=== PATIENT | female | born 2000 | race Two or more races ===

== ENCOUNTER 2022-04-15 17:41 | Emergency (ER) | payer SELFPAY ==
[2022-04-15 18:09] LABS: Urine Blood Trace-lysed (Negative); Urine Glucose Negative (Negative); Urine Protein Negative (Negative); Urine Specific Gravity 1.025 (1.005-1.030); Urine pH 5.5 (5.0-7.0)
[2022-04-15] MEDS ORDERED: KETOROLAC 30 MG/ML INJ ONE (18:43)
[2022-04-15] MEDS ORDERED: NA CHLORIDE 0.9% 1,000 ML ONE (18:43)
[2022-04-15 18:52] LABS: Urine Bacteria <20 /HPF (<20); Urine Mucus Slight /HPF (None Seen); Urine RBC <5 /HPF (None Seen)
[2022-04-15 19:08] LABS: Barbiturates NEGATIVE (NEGATIVE); Benzodiazepines NEGATIVE (NEGATIVE); Cocaine NEGATIVE (NEGATIVE); METHAMPHETAM NEGATIVE (NEGATIVE); Methadone NEGATIVE (NEGATIVE); Opiates NEGATIVE (NEGATIVE); Phencyclidine NEGATIVE (NEGATIVE); THC Cannibis NEGATIVE (NEGATIVE)
[2022-04-15 20:16] LABS: Absolute Lymphocytes (CBC) 2.3 K/uL (0.7-4.9); Hematocrit 39.1 % (36.0-45.0); Lymphocytes % 21.5 % (15.3-44.8); MCV 87.9 fL (80-100); RBC Red Blood Cell Count 4.45 M/uL (3.86-4.86)
[2022-04-15 20:21] LABS: Urine Specific Gravity/Preg 1.025 (1.005-1.030)
[2022-04-15 20:31] LABS: Albumin 3.6 g/dL (3.4-5.0); Bilirubin Total 0.4 mg/dL (0.2-1.0); Potassium 3.9 mmol/L (3.5-5.1)
--- NOTE | 2022-04-15 20:59 | RAD REPORT ---
EXAM DESCRIPTION: CT - Head Brain Wo Cont - 04/15/2022 8:51 pm CLINICAL HISTORY: headache COMPARISON: No comparisons TECHNIQUE: All CT scans are performed using dose optimization technique as appropriate and may inclu de automated exposure control or mA/KV adjustment according to patient size. FINDINGS: No intracranial hemorrhage, hydrocephalus or extra-axial fluid collection.No areas of brai n edema or evidence of midline shift. The paranasal sinuses and mastoids are clear. The calvarium is intact. IMPRESSION: No acute intracranial abnormality.
--- NOTE | 2022-04-15 21:01 | RAD REPORT ---
EXAM DESCRIPTION: CTAbdomen Pelvis W Contrast - 04/15/2022 8:51 pm CLINICAL HISTORY: lower abdomen pain COMPARISON: Head Brain Wo Cont dated 04/15/2022 TECHNIQUE: CT of the abdomen and pelvis was performed. All CT scans are performed using dose optimization technique as appropriate and may include automated exposure control or mA/KV adjustment according to patient size. FINDINGS: Lower chest: No acute abnormality. Liver: No acute abnormality or suspicious lesions. Biliary: No biliary ductal dilatation. Stomach: No significant focal abnormality. Duodenum: No significant focal abnormality. Pancreas: No significant abnormality. Spleen: No significant abnormality. Adrenal: No suspicious lesions. Kidney/ureter: No hydronephrosis. No renal calculi. Retroperitoneum: No retroperitoneal adenopathy. Vascular: No aneurysm. Bowel: No significant focal abnormality. No evidence appendicitis. Peritoneum: Trace pelvic free fluid. Bladder: Grossly unremarkable. Reproductive: 2 adjacent right adnexal cysts are noted. Bones: No acute fracture. Other: n/a IMPRESSION: No acute intra-abdominal or pelvic finding. Right adnexal lesions which are presumably p hysiologic in a patient of this age group. No evidence of appendicitis.
[2022-04-15] MEDS ORDERED: METOPROLOL TARTRATE 5 MG/5 ML INJ IV ONE (21:41)
--- NOTE | 2022-04-15 22:33 | EDPHYS ---
Physician Documentation [facility] Name: Irene Álvarez Age: 21 yrs Sex: Female : 2000 Arrival Date: 04/15/2022 Time: 17:45 Bed 17 Private MD: ED Physician James Chiu HPI: 04/15 18:05 This 21 yrs old Female presents to ER via Ambulatory with complaints of Headache, cp Vomiting, Abdominal Cramping. 18:05 The patient complains of pain to the top of head. The patient describes the headache as cp intermittent. Onset: The symptoms/episode began/occurred 3 week(s) ago. 18:05 Associated signs and symptoms: Pertinent positives: nausea, vomiting, lower abdomen cp pain. Severity of symptoms: in the emergency department the pain is unchanged, despite home interventions. Headache History: Other patient reports history of headaches due to head injury in the past. Has seen a neurologist in the past. Denies any recent head injury. 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 - Social history:: Smoking status: Patient denies any tobacco usage or history of. ROS: 18:10 Constitutional: Negative for body aches, chills, fever, poor PO intake. cp 18:10 Eyes: Negative for injury, pain, redness, and discharge. cp 18:10 ENT: Negative for drainage from ear(s), ear pain, sore throat, difficulty swallowing, difficulty handling secretions. 18:10 Cardiovascular: Negative for chest pain, edema, palpitations. 18:10 Respiratory: Negative for cough, shortness of breath, wheezing. 18:10 Abdomen/GI: Positive for abdominal pain, nausea and vomiting, Negative for diarrhea, constipation, anorexia. 18:10 Back: Negative for pain at rest, pain with movement. 18:10 : Negative for urinary symptoms, vaginal bleeding, vaginal discharge. 18:10 Neuro: Positive for headache, Negative for altered mental status, numbness, tingling, cp weakness. 18:10 All other systems are negative. Exam: 18:15 Constitutional: The patient appears in no acute distress, alert, awake, cp non-diaphoretic, non-toxic, well developed, well nourished. 18:15 Head/Face: Normocephalic, atraumatic. cp 18:15 Eyes: Periorbital structures: appear normal, Pupils: equal, round, and reactive to light and accomodation, Extraocular movements: intact throughout, Conjunctiva: normal, no exudate, no injection, Sclera: no appreciated abnormality, Lids and lashes: appear normal, bilaterally. 18:15 ENT: External ear(s): are unremarkable, Ear canal(s): are normal, clear, TM's: dullness, bilaterally, Nose: is normal, Mouth: Lips: moist, Oral mucosa: pink and intact, moist, Posterior pharynx: Airway: no evidence of obstruction, patent, Tonsils: are normal in appearance, swelling, is not appreciated, erythema, is not appreciated, exudate, is not appreciated. 18:15 Neck: ROM/movement: is normal, is supple, without pain, no range of motions limitations, no nuchal rigidity. 18:15 Chest/axilla: Inspection: normal. 18:15 Cardiovascular: Rate: tachycardic, Rhythm: regular, Edema: is not appreciated, JVD: is not appreciated. 18:15 Respiratory: the patient does not display signs of respiratory distress, Respirations: normal, no use of accessory muscles, no retractions, labored breathing, is not present, Breath sounds: are clear throughout, no decreased breath sounds, no stridor, no wheezing. 18:15 Abdomen/GI: Inspection: abdomen appears normal, Bowel sounds: active, all quadrants, Palpation: soft, in all quadrants, mild abdominal tenderness, in the right lower quadrant and left lower quadrant, rebound tenderness, is not appreciated, involuntary guarding, is not appreciated. 18:15 Back: CVA tenderness, is absent. 18:15 Neuro: Orientation: to person, place \T\ time. Mentation: is normal, Cerebellar function: is grossly normal, Motor: moves all fours, strength is normal, Sensation: is normal. 20:10 ECG was reviewed by the Attending Physician. cp 21:30 : Pelvic Exam: The exam is refused by the patient/guardian. The risks and cp consequences are understood by the patient, Sexual behavior: the patient is sexually active. Vital Signs: 17:50 BP 126 / 76; Pulse 147; Resp 22; Temp 97.4; Pulse Ox 98% ; Weight 51.71 kg; Height 5 ko1 ft. 5 in. (165.10 cm); Pain 4/10; 20:14 BP 118 / 70; Pulse 118; Resp 19 S; Pulse Ox 100% on R/A; lg3 21:51 BP 118 / 71; Pulse 113; Resp 18 S; Pulse Ox 100% on R/A; lg3 22:39 BP 117 / 68; Pulse 117; Resp 18 S; Pulse Ox 100% on R/A; lg3 17:50 Body Mass Index 18.97 (51.71 kg, 165.10 cm) ko1 MDM: 17:58 Patient medically screened. cp 22:33 Data reviewed: vital signs, nurses notes, lab test result(s), EKG, radiologic studies, cp CT scan. 22:33 Differential diagnosis: migraine, sinusitis, subarachnoid bleed, tension headache. Test cp interpretation: by ED physician or midlevel provider: ECG. Counseling: I had a detailed discussion with the patient and/or guardian regarding: the historical points, exam findings, and any diagnostic results supporting the discharge/admit diagnosis, lab results, radiology results, the need for outpatient follow up, a family practitioner, to return to the emergency department if symptoms worsen or persist or if there are any questions or concerns that arise at home. Response to treatment: the patient's symptoms have markedly improved after treatment, and as a result, I will discharge patient. 04/15 17:59 Order name: Urine Microscopic Only; Complete Time: 19:14 cp 04/15 19:14 Interpretation: Reviewed. cp 04/15 18:09 Order name: Urine Dipstick-Ancillary; Complete Time: 18:16 EDMS 04/15 18:16 Interpretation: Reviewed. 04/15 18:09 Order name: Urine --Ancillary (enter results); Complete Time: 20:54 eb 04/15 18:18 Order name: UDS; Complete Time: 19:14 cp 04/15 18:18 Order name: CBC with Diff; Complete Time: 20:54 cp 04/15 20:54 Interpretation: Normal except: RDW 11.8. cp 04/15 18:18 Order name: CMP; Complete Time: 20:54 cp 04/15 20:54 Interpretation: Normal except: CRE 0.42. 04/15 17:59 Order name: Urine Dipstick-Ancillary (obtain specimen); Complete Time: 18:30 cp 04/15 18:18 Order name: EKG; Complete Time: 18:18 cp 04/15 18:18 Order name: Lipase; Complete Time: 20:54 cp 04/15 18:18 Order name: CT Head Brain wo Cont; Complete Time: 21:16 cp 04/15 21:16 Interpretation: Report reviewed. 04/15 18:18 Order name: CT Abd/Pelvis - IV Contrast Only; Complete Time: 21:16 cp 04/15 21:17 Interpretation: Report reviewed. 04/15 17:59 Order name: Urine Test (obtain specimen); Complete Time: 18:30 cp 04/15 18:18 Order name: EKG - Nurse/Tech; Complete Time: 20:00 cp 04/15 18:18 Order name: IV Saline Lock; Complete Time: 20:00 04/15 18:18 Order name: Labs collected and sent; Complete Time: 20:00 cp EC:10 Rate is 122 beats/min. Rhythm is regular. SC interval is normal. QRS interval is cp normal. QT interval is normal. Interpreted by me. Reviewed by me. Administered Medications: 20:00 Drug: NS 0.9% 1000 ml Route: IV; Rate: 1 bolus; Site: right antecubital; lg3 21:51 Follow up: Response: No adverse reaction; IV Status: Completed infusion; IV Intake: lg3 1000ml 20:00 Drug: Ketorolac 15 mg Route: IVP; Site: right antecubital; lg3 20:15 Follow up: Response: No adverse reaction; Marked relief of symptoms lg3 21:35 Drug: Metoprolol 2.5 mg Route: IVP; Site: right antecubital; lg3 22:39 Follow up: Response: No adverse reaction; No change in condition lg3 Disposition Summary: 04/15/22 22:33 Discharge Ordered Location: Home cp Problem: new cp Symptoms: have improved cp Condition: Stable cp Diagnosis - Headache cp - Lower abdominal pain, unspecified cp Followup: cp - With: Private Physician - When: 2 - 3 days - Reason: Recheck today's complaints Discharge Instructions: - Discharge Summary Sheet cp - Abdominal Pain, Adult cp - General Headache Without Cause cp Forms: - Medication Reconciliation Form cp - Thank You Letter cp - Antibiotic Education cp - Prescription Opioid Use cp Prescriptions: - Ibuprofen 600 mg Oral Tablet - take 1 tablet by ORAL route every 8 hours As needed take with food; 30 tablet; cp Refills: 0, Product Selection Permitted Signatures: Dispatcher [employer] EDMS Vitaly Matos PA PA cp Gibson, Lacie RN RN lg3 Michelle Randle RN RN ko1
--- NOTE | 2022-04-15 22:33 | ER ---
Nurse's Notes [facility] Name: Irene Álvarez Age: 21 yrs Sex: Female : 2000 Arrival Date: 04/15/2022 Time: 17:45 Bed 17 Private MD: Diagnosis: Headache;Lower abdominal pain, unspecified Presentation: 04/15 17:50 Chief complaint: Patient states: Patient has had a headache for 2-3 weeks, took tylenol ko but it didn't help. Abdominal pain and vomiting today. Coronavirus screen: At this time, the client does not indicate any symptoms associated with coronavirus-19. Ebola Screen: No symptoms or risks identified at this time. Initial Sepsis Screen: Does the patient meet any 2 criteria? No. Patient's initial sepsis screen is negative. Does the patient have a suspected source of infection? No. Patient's initial sepsis screen is negative. Risk Assessment: Do you want to hurt yourself or someone else? Patient reports no desire to harm self or others. Onset of symptoms was April 15, 2022. 17:50 Method Of Arrival: Ambulatory ko1 17:50 Acuity: NICKY 3 ko1 Triage Assessment: 17:53 Headache History: The patient has had previous headaches and this one is different than ko1 previous episodes. General: Appears in no apparent distress. Behavior is calm, cooperative, appropriate for age. Pain: Pain currently is 4 out of 10 on a pain scale. level that patient reports is acceptable is 2 out of 10 on a pain scale. Pain began 2-3 days ago. Also complains of no other associated symptoms. 17:53 Neuro: No deficits noted. 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 - Social history:: Smoking status: Patient denies any tobacco usage or history of. Screenin:00 Abuse screen: Denies threats or abuse. Denies injuries from another. Nutritional lg3 screening: No deficits noted. Tuberculosis screening: No symptoms or risk factors identified. Fall Risk None identified. Assessment: 18:57 Reassessment: PT REFUSING FURTHER CARE UNTIL SELF DX EAR INFECTION EXAMINED. bp 20:00 General: Appears in no apparent distress. comfortable, Behavior is calm, cooperative. lg3 Pain: Complains of pain in head and lower abdomen Pain currently is 5 out of 10 on a pain scale. Noted to be guarding, resistant to movement. Neuro: No deficits noted. Level of Consciousness is awake, alert, obeys commands, Oriented to person, place, time, situation. Cardiovascular: No deficits noted. Denies chest pain, shortness of breath, Capillary refill < 3 seconds Clubbing of nail beds is absent JVD is absent Patient's skin is warm and dry. Respiratory: No deficits noted. Airway is patent Trachea midline Respiratory effort is even, unlabored, Respiratory pattern is regular, symmetrical, Breath sounds are clear bilaterally. GI: No deficits noted. Abdomen is flat, non-distended, Abd is soft X 4 quads Abdomen is tender to palpation in right lower quadrant and left lower quadrant Reports lower abdominal pain. : No deficits noted. No signs and/or symptoms were reported regarding the genitourinary system. EENT: No deficits noted. No signs and/or symptoms were reported regarding the EENT system. Derm: No deficits noted. No signs and/or symptoms reported regarding the dermatologic system. Skin is intact, is healthy with good turgor, Skin is dry, Skin is normal, Skin temperature is warm. Musculoskeletal: No deficits noted. No signs and/or symptoms reported regarding the musculoskeletal system. Circulation, motion, and sensation intact. Range of motion: intact in all extremities. 20:52 Reassessment: Patient appears in no apparent distress at this time. No changes from lg3 previously documented assessment. Patient and/or family updated on plan of care and expected duration. Pain level reassessed. Patient is alert, oriented x 3, equal unlabored respirations, skin warm/dry/pink. 21:51 Reassessment: Patient appears in no apparent distress at this time. No changes from lg3 previously documented assessment. Patient and/or family updated on plan of care and expected duration. Pain level reassessed. Patient is alert, oriented x 3, equal unlabored respirations, skin warm/dry/pink. 22:40 Reassessment: Patient appears in no apparent distress at this time. No changes from lg3 previously documented assessment. Patient and/or family updated on plan of care and expected duration. Pain level reassessed. Patient is alert, oriented x 3, equal unlabored respirations, skin warm/dry/pink. Patient states symptoms have improved. Vital Signs: 17:50 BP 126 / 76; Pulse 147; Resp 22; Temp 97.4; Pulse Ox 98% ; Weight 51.71 kg; Height 5 ko1 ft. 5 in. (165.10 cm); Pain 4/10; 20:14 BP 118 / 70; Pulse 118; Resp 19 S; Pulse Ox 100% on R/A; lg3 21:51 BP 118 / 71; Pulse 113; Resp 18 S; Pulse Ox 100% on R/A; lg3 22:39 BP 117 / 68; Pulse 117; Resp 18 S; Pulse Ox 100% on R/A; lg3 17:50 Body Mass Index 18.97 (51.71 kg, 165.10 cm) ko1 ED Course: 17:45 Patient arrived in ED. rg4 17:46 Vitaly Matos PA is PHCP. cp 17:46 James Chiu MD is Attending Physician. cp 17:53 Triage completed. ko1 17:53 Arm band placed on right wrist. Patient placed in waiting room, Patient notified of ko1 wait time. 17:57 Hu Saxena, RN is Primary Nurse. bp 19:22 Primary Nurse role handed off by Hu Saxena, IMER mw2 19:41 Rebecca Juarez, RN is Primary Nurse. lg3 20:00 Patient has correct armband on for positive identification. Bed in low position. Call lg3 light in reach. Side rails up X 1. Client placed on continuous cardiac and pulse oximetry monitoring. NIBP monitoring applied. Door closed. Noise minimized. Warm blanket given. Family accompanied patient. 20:00 CBC with Diff Sent. lg3 20:00 CMP Sent. lg3 20:00 Lipase Sent. lg3 20:00 Inserted saline lock: 22 gauge in right antecubital area, using aseptic technique. lg3 Blood collected. 20:15 Client placed on continuous cardiac and pulse oximetry monitoring. NIBP monitoring wm applied. 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 Pulse ox on. 20:15 EKG done, by ED staff, reviewed by Vitaly POLANCO. wm 20:54 CT Head Brain wo Cont In Process Unspecified. EDMS 20:54 CT Abd/Pelvis - IV Contrast Only In Process Unspecified. EDMS 22:40 No provider procedures requiring assistance completed. IV discontinued, intact, lg3 bleeding controlled, No redness/swelling at site. Pressure dressing applied. Administered Medications: 20:00 Drug: NS 0.9% 1000 ml Route: IV; Rate: 1 bolus; Site: right antecubital; lg3 21:51 Follow up: Response: No adverse reaction; IV Status: Completed infusion; IV Intake: lg3 1000ml 20:00 Drug: Ketorolac 15 mg Route: IVP; Site: right antecubital; lg3 20:15 Follow up: Response: No adverse reaction; Marked relief of symptoms lg3 21:35 Drug: Metoprolol 2.5 mg Route: IVP; Site: right antecubital; lg3 22:39 Follow up: Response: No adverse reaction; No change in condition lg3 Medication: 22:40 VIS not applicable for this client. lg3 Intake: 21:51 IV: 1000ml; Total: 1000ml. lg3 Outcome: 22:33 Discharge ordered by MD. cp 22:40 Discharged to home ambulatory, with significant other. lg3 22:40 Condition: stable 22:40 Discharge instructions given to patient, Instructed on discharge instructions, follow up and referral plans. medication usage, Demonstrated understanding of instructions, follow-up care, medications, Prescriptions given X 1. 23:00 Patient left the ED. lg3 Signatures: Dispatcher [employer] EDMS Vitaly Matos PA PA cp Garcia, Rubi rg4 Hu Saxena, RN IMER [place] mw2 Rebecca Juarez RN RN lg3 Quyen Rodriguez Kathy, RN RN ko1
[2022-04-16 02:25] VITALS: TEMP 97.4
[2022-04-16 02:28] VITALS: O2SAT 100
[2022-04-16 02:33] VITALS: BP 117/68
--- NOTE | 2022-04-16 14:32 | EKG ---
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
== END 2022-04-15 23:00 | disposition home or self-care (01) ==
LOC: ER 17:41
DX: R51.9 Headache, unspecified (principal); R10.30 Lower abdominal pain, unspecified
CPT/HCPCS: 36415; 70450; 74177; 80053; 80307; 81003; 81015; 81025; 83690; 85025; 93005; 96361; 96374; 96375; 99285; J7030; Q9967